=== PATIENT | female | born 1940 | race Caucasian/White ===

== ENCOUNTER → 2016-05-19 | Outpatient (CLI) | payer MEDICARE ==
[~2016-05-19] MED LIST: B-COCAP8 PO; BACT800T5 PO; BIOT10005 PO; CALC600T10 PO; CALC600T21 PO; COUM2.5T11 PO; EXTR500C4 PO; GLUC1CAP9 PO; IBUP200C PO; LISI10TA4 PO; LISI20TA PO; PERC5TAB6 PO; TYLE325T5 PO; VICO5TAB16 PO; VITA100066 PO; VITA200016 PO; VITMTA PO
--- NOTE | 2016-05-19 14:48 | REP ---
LUMBAR SPINE, SIX VIEWS: HISTORY: Spondylosis. COMPARISON: 05/25/2015 There is no acute fracture. The intervertebral discs are decreased in height. Vacuum phenomenon is present at the L4-5 and L5-S1 levels. These findings are consistent with disc degeneration. Osteophytes are present throughout the lumbar spine. There is narrowing of the L3-4 through L5-S1 facet joints. There are 6 mm of grade 1 spondylolisthesis of L4 on L5. This is unchanged with flexion and extension. An interspinous spacer is present at the L4-5 level. IMPRESSION: Degenerative change as described above. Signed by Chaparro Gomez MD 05/19/2016 02:49 P
== END ==
LOC: M RAD 12:19
PROVIDERS: ATTEND Neurological Surgery
DX: M51.36 Other intervertebral disc degeneration, lumbar region (principal); M51.37 Other intervertebral disc degeneration, lumbosacral region; Z96.698 Presence of other orthopedic joint implants

== ENCOUNTER → 2016-05-19 | Outpatient (CLI) | payer MEDICARE ==
--- NOTE | 2016-05-19 15:59 | REP ---
MRI LUMBAR SPINE WITHOUT CONTRAST: HISTORY: Spondylosis. COMPARISON: 04/28/2015 Decreased signal intensity on T2-weighted images is present in the lumbar intervertebral discs. The discs are decreased in height. These findings are consistent with disc degeneration. A diffuse disc bulge with associated osteophyte formation is present at the L1-2 level. The previously noted disc extrusion is not seen. There is minimal compression of the thecal sac. There is hypertrophy of the posterior articulating facets. The L1 nerves exit the neural foramina without compression. A diffuse disc bulge is present at the L2-3 level. There are 2 mm of retrolisthesis of L2 on L3. There is minimal compression of the thecal sac. There is hypertrophy of the posterior articulating facets. The L2 nerves exit the neural foramina without compression. A diffuse disc bulge is present at the L3-4 level. There is minimal compression of the thecal sac. There is hypertrophy of the posterior articulating facets. The L3 nerves exit the neural foramina without compression. A diffuse disc bulge and small central disc extrusion are present at the L4-5 level. There is superior migration of disc material. There is hypertrophy of the ligamenta flava and posterior articulating facets. There are 5 mm of grade 1 spondylolisthesis of L4 on L5. These findings produce mild central canal stenosis. There is compression of the left L4 nerve in the neural foramen. The right L4 nerve exits the neural foramen without compression. A right laminectomy defect is present. An interspinous spacer is present. Isointense tissue is present in the right lateral aspect of the spinal canal. This involves the right L5 nerve. A diffuse disc bulge is present at the L5-S1 level. There is minimal compression of the thecal sac. There is hypertrophy of the posterior articulating facets. The L5 nerves exit the neural foramina without compression. The conus medullaris is normal in appearance terminating at the level of the L1-2 intervertebral disc. Increased signal intensity on T2-weighted images is present in the endplates of the L1 through S1 vertebral bodies. This represents degenerative change. IMPRESSION: 1. Diffuse disc bulge with associated osteophyte formation at the L1-2 level with minimal thecal sac compression. The previously noted disc protrusion is not seen. 2. Diffuse disc bulge and retrolisthesis at the L2-3 level with minimal thecal sac compression. The retrolisthesis is a new finding. 3. Diffuse disc bulge at the L3-4 level with minimal thecal sac compression. 4. Mild central canal stenosis at the L4-5 level secondary to disc bulge, disc extrusion, ligamentous and facet hypertrophy and grade 1 spondylolisthesis. There is compression of the left L4 nerve in the neural foramen. A right laminectomy defect is present. Scar tissue involves the right L5 nerve. An interspinous spacer is present. The postoperative change and the disc extrusion are new findings. 5. Diffuse disc bulge of the L5-S1 level with minimal thecal sac compression. There is no other significant change. Signed by Chaparro Gomez MD 05/19/2016 04:07 P
== END ==
LOC: M RAD 13:41
PROVIDERS: ATTEND Neurological Surgery
DX: M51.26 Other intervertebral disc displacement, lumbar region (principal); M51.27 Other intervertebral disc displacement, lumbosacral region; M48.06 Spinal stenosis, lumbar region; M12.88 Other specific arthropathies, not elsewhere classified, other specified site; M51.36 Other intervertebral disc degeneration, lumbar region; M51.37 Other intervertebral disc degeneration, lumbosacral region; M25.511 Pain in right shoulder; M25.512 Pain in left shoulder; Z96.698 Presence of other orthopedic joint implants

== ENCOUNTER → 2016-05-19 | Outpatient (CLI) | payer MEDICARE ==
--- NOTE | 2016-05-19 14:59 | REP ---
BILATERAL SHOULDER SERIES: Six views. HISTORY: Pain in each shoulder. No known injury. No comparison shoulder series. FINDINGS: Three views of the left shoulder demonstrate normal alignment of the glenohumeral and acromioclavicular joints. Periarticular soft tissues show one small periarticular calcification at the superior glenoid margin. This may reflect calcific tendonitis or bursitis. No other abnormality. Three views of the right shoulder show normal alignment of the glenohumeral and acromioclavicular joints. Periarticular soft tissues are unremarkable. No erosive change is seen. IMPRESSION: Periarticular soft-tissue calcification on the left may reflect tendonitis or bursitis. Otherwise negative. Signed by Hugh Maciel MD 05/19/2016 07:43 P
== END ==
LOC: M RAD 13:40
PROVIDERS: ATTEND Nurse Practitioner Adult Health
DX: M25.512 Pain in left shoulder (principal); M25.511 Pain in right shoulder

== ENCOUNTER 2016-06-02 14:28 | Emergency (ER) | payer MEDICARE ==
[~2016-06-02] VITALS: Ht 160 cm; Wt 68.0 kg
[2016-06-02] MEDS ORDERED: MELO15TA4 PO (14:49)
[2016-06-02] MEDS ORDERED: HYDR-3713 PO ×2 (16:39→20:17)
[2016-06-02] MEDS ORDERED: NORCO, ANEXSIA 5/325MG TABLET (HYDROcodone/ACETAMINOPHEN) PO ONE (17:00)
--- NOTE | 2016-06-02 20:00 | REPUSA ---
CLINICAL HISTORY: Neck and arm pain. TECHNIQUE: MRI of the cervical spine was performed utilizing multiple sequences in axial and sagitta l planes without IV contrast material. FINDINGS: Straightening of cervical lordosis compatible with muscle spasm. Multilevel dehydration and desiccati on is seen. There is moderate loss of disc space height noted at C3-C4 through C6-C7. The visualized osseous elements are intact with no evidence of fracture or dislocation. The marrow signals are with in normal limits. The cervical cord is of normal uniform signal intensity without evidence of focal expansion. There is no evidence for tonsillar herniation. Limited views of the posterior fossa reve al no abnormalities. Evaluation of individual levels presents as follows: At C2-C3, central herniated disc measures 7 x 1.5 mm indents the ventral thecal sac. Canal and forami na are patent. At C3-C4, 2 mm bulge indents the ventral thecal sac. Canal and foramina are patent. At C4-C5, bulges seen associated with spurring. Both foramina are mild narrowing. Canal is borderline stenotic. Uncovertebral joint hypertrophy contributes. At C5-C6, bulges seen associated with spurring. Both foramina are mild narrowing. Canal is borderline stenotic. Uncovertebral joint hypertrophy contributes. At C6-C7, bulges seen associated with spurring. Both foramina are mild narrowing. Canal is borderline stenotic. Uncovertebral joint hypertrophy contributes. C7-T1 level is unremarkable. IMPRESSION: 1. Multilevel degenerative spondylosis. 2. Straightening of cervical lordosis compatible with muscle spasm. 3. At C2-C3, central herniated disc measures 7 x 1.5 mm indents the ventral thecal sac. Canal and for ascencion are patent. 4. At C3-C4, 2 mm bulge indents the ventral thecal sac. Canal and foramina are patent. 5. At C4-C5, bulges seen associated with spurring. Both foramina are mild narrowing. Canal is borderl ine stenotic. Uncovertebral joint hypertrophy contributes. 6. At C5-C6, bulges seen associated with spurring. Both foramina are mild narrowing. Canal is borderl ine stenotic. Uncovertebral joint hypertrophy contributes. 7. At C6-C7, bulges seen associated with spurring. Both foramina are mild narrowing. Canal is borderl ine stenotic. Uncovertebral joint hypertrophy contributes. Thank you for your kind referral of this patient. We appreciate the opportunity to participate in thi s patient's care.
[2016-06-02] MEDS ORDERED: NORCO 5/325MG TABLET (BULK) PO ONE (20:15)
[2016-06-02 20:31] VITALS: BP 138/88
--- NOTE | 2016-06-04 14:37 | ED PDOC ---
Post-Departure Follow-Up luda krishnamurthy faxed formal report of mri c spine, for fu Estrella Michael MD Jun 04, 2016 14:37
== END 2016-06-02 20:32 | disposition home or self-care (01) ==
LOC: M ED 16:41
DX: M54.2 Cervicalgia (principal); Z79.899 Other long term (current) drug therapy; I10 Essential (primary) hypertension; E03.9 Hypothyroidism, unspecified

== ENCOUNTER → 2016-06-16 | Outpatient (CLI) | payer MEDICARE ==
[~2016-06-16] MED LIST changes: +HYDR-3713 PO; +MELO15TA4 PO
== END ==
LOC: M WUC 16:55
PROVIDERS: ATTEND Neurological Surgery
DX: M06.9 Rheumatoid arthritis, unspecified (principal)

== ENCOUNTER → 2016-07-08 | Outpatient (REF) | payer MEDICARE ==
[2016-07-08 14:17] LABS: FOLATE > 24.0 NG/ML; VITAMIN B12 LEVEL 1729 PG/ML
[2016-07-08 14:20] LABS: TOTAL PROTEIN 7.3 GM/DL (6.4-8.2)
[2016-07-10 12:31] LABS: ALBUMIN 4.13 GM/DL (3.29-5.55); ALBUMIN % 56.6 % (55.8-66.1); GAMMA GLOBULIN % 14.7 % (11.1-18.8)
[2016-07-11 08:07] LABS: SJOGREN'S ANTI SS-A <0.2 AI (0.0-0.9); SJOGREN'S ANTI SS-B <0.2 AI (0.0-0.9)
== END ==
LOC: M LABNEURO 13:01
PROVIDERS: ATTEND Psychiatry & Neurology Neurology
DX: R20.0 Anesthesia of skin (principal); G62.9 Polyneuropathy, unspecified; M35.00 Sjogren syndrome, unspecified; Z13.1 Encounter for screening for diabetes mellitus; Z13.29 Encounter for screening for other suspected endocrine disorder

== ENCOUNTER → 2016-10-20 | Outpatient (CLI) | payer MEDICARE ==
[~2016-10-20] MED LIST changes: -BIOT10005 PO; +BIOT10008 PO; -CALC600T10 PO; -CALC600T21 PO; +CALC600T31 PO; +CALC600T60 PO; -COUM2.5T11 PO; +COUM2.5T17 PO; -IBUP200C PO; +IBUP200C10 PO; +PERC5TAB12 PO; -PERC5TAB6 PO
[2016-10-20 20:36] LABS: BLOOD UREA NITROGEN 20 MG/DL (7-18); CREATININE FOR GFR 0.72 MG/DL (0.55-1.02); GLOMERULAR FILTRATION RATE > 60.0 (>39)
== END ==
LOC: M WUC 16:47
PROVIDERS: ATTEND Pain Medicine Interventional Pain Medicine
DX: M96.1 Postlaminectomy syndrome, not elsewhere classified (principal); M54.16 Radiculopathy, lumbar region

== ENCOUNTER → 2016-10-24 | Outpatient (CLI) | payer MEDICARE ==
--- NOTE | 2016-10-24 15:06 | REPMRS ---
Patient History The patient states she has not had a clinical breast exam in over a year. Family history of prostate cancer in father at age 50 or over and colorectal cancer in sister under age 50. Benign excisional biopsy of the right breast, 2009. Digital Woman Screen Mammo: October 24, 2016 - Exam #: [id number] Bilateral CC and MLO view(s) were taken. Technologist: Naida Bolton, Technologist Prior study comparison: October 19, 2015, digital woman screen mammo performed at [facility]. October 30, 2014, digital woman screen mammo performed at [facility]. FINDINGS: The breast tissue is heterogeneously dense. This may lower the sensitivity of mammography. There has been no change in the appearance of the mammogram from the prior studies. There is a moderate amount of residual fibroglandular tissue which is fairly symmetric. There is no interval development of dominant mass, areas of architectural distortion, or clustered microcalcification typical of malignancy. ASSESSMENT: BI-RADS/ACR category 1 mammogram. Negative. Recommendation Routine screening mammogram in 1 year (for women over age 40). This mammogram was interpreted with the aid of an FDA-approved computer-aided dectection system. Electronically Signed By: Walt Paredes MD 10/24/16 1920
== END ==
LOC: M WHC 13:43
PROVIDERS: ATTEND Nurse Practitioner Adult Health
DX: Z12.31 Encounter for screening mammogram for malignant neoplasm of breast (principal)

== ENCOUNTER → 2016-10-24 | Outpatient (CLI) | payer MEDICARE ==
[2016-10-24 18:50] LABS: FREE T4 1.59 NG/DL (0.76-1.46)
== END ==
LOC: M WUC 15:03
PROVIDERS: ATTEND Psychiatry & Neurology Neurology
DX: E07.9 Disorder of thyroid, unspecified (principal); Z12.31 Encounter for screening mammogram for malignant neoplasm of breast
CPT/HCPCS: 36415; 84439; 84443; G0202

== ENCOUNTER → 2016-10-27 | Outpatient (CLI) | payer MEDICARE ==
--- NOTE | 2016-10-27 15:10 | REP ---
MRI LUMBAR SPINE WITHOUT AND WITH IV GADOLINIUM. HISTORY: Low back pain. Left leg and foot pain. Lumbar radiculitis. Comparison MRI study is from May 19, 2016. This study was read as showing mild central canal stenosis at L4-5 with left L4 nerve root compression. Post laminectomy on the right with granulation tissue around the right fifth lumbar nerve root. TECHNIQUE: Sagittal and axial T1 and T2-weighted scans are acquired in the usual fashion with and without fat saturation. Sequences include spin echo, turbo spin echo, and STIR imaging sequences. Post gadolinium enhanced images are also included. The gadolinium enhancement dose is 13 mL of intravenous ProHance. MRI FINDINGS: There is a scoliotic curve in the lumbar spine again noted. Lumbar vertebral body heights are preserved. There is diffuse moderate degenerative disc disease throughout the lumbar spine. Posterior osteophytic ridging and diffuse disc bulging is seen at each level from L1-2 through L5-S1. At L4-5, there is a degenerative grade 1 5.6 mm L4-5 spondylolisthesis again noted unchanged with associated disc bulging. There is left-sided neural foraminal narrowing moderate in degree at L4-5 . This is unchanged as well. Post laminectomy changes are noted on the right at L4-5 . No central canal stenosis is seen at any level. There is right-sided neural foraminal narrowing at L5-S1. Unchanged from prior study. No abnormal gadolinium enhancement is seen. IMPRESSION: Scoliosis and diffuse degenerative spondylosis change. Neural foraminal narrowing as above L4-5 and L5-S1 unchanged from the prior study. Degenerative L4-5 spondylolisthesis. Post laminectomy changes L4-5. Signed by Hugh Maciel MD 10/27/2016 04:09 P
== END ==
LOC: M RAD 12:39
PROVIDERS: ATTEND Pain Medicine Interventional Pain Medicine
DX: M54.5 Low back pain (principal)
CPT/HCPCS: 72158; A9576